=== PATIENT | male | born 1985 | race Caucasian/White ===

== ENCOUNTER 2019-08-28 02:24 | Emergency (ER) | payer SELFPAY ==
[~2019-08-28] VITALS: Ht 190.5 cm; Wt 90.7 kg
--- NOTE | 2019-08-28 02:46 | NUR ---
PT BIB SELF TO ER C/O PAIN, REDNESS, SWELLING ON LEFT FOREARM, LEFT HAND, RIGHT HAND, AND RIGHT CALVE. ADMITS TO USING HEROIN, PATIENT STATES" I am using heroin for the pain". SKIN INTACT. PAINFUL UPON PALPATION. NO SOB. NAD. AAOX4. CONNECTED TO MONITOR.
[2019-08-28] MEDS ORDERED: CLINDAMYCIN 900 MG/6 ML VIAL ONE (02:57)
[2019-08-28] MEDS ORDERED: SULFAMETH/TRIMETH 800/160 MG 1 UDTAB TABLET ONE (02:58)
[2019-08-28] MEDS ORDERED: CLINDAMYCIN 900 MG/6 ML VIAL IM ONE (03:00)
[2019-08-28] MEDS ORDERED: SULFAMETH/TRIMETH 800/160 MG 1 UDTAB TABLET PO ONE (03:00)
[2019-08-28 03:09] VITALS: BP 137/76
--- NOTE | 2019-08-28 03:09 | NUR ---
Patient discharged to home in stable condition. Written and verbal after care instructions given. Patient verbalizes understanding of instruction.
--- NOTE | 2019-08-28 03:09 | NUR ---
given prescriptions and explained to patient.
== END 2019-08-28 03:33 | disposition home or self-care (01) ==
LOC: ER 02:28
DX: L02.413 Cutaneous abscess of right upper limb (principal); L02.414 Cutaneous abscess of left upper limb; A49.02 Methicillin resistant Staphylococcus aureus infection, unspecified site; F17.200 Nicotine dependence, unspecified, uncomplicated; Z88.0 Allergy status to penicillin; Z88.1 Allergy status to other antibiotic agents
CPT/HCPCS: 96372; 99283; J3490